=== PATIENT | female | born 1985 | race Caucasian/White ===

== ENCOUNTER 2019-06-18 12:02 | Inpatient (IN) ==
[2019-06-18] MEDS ORDERED: Ondansetron 4 MG/2 ML VIAL IVP PRN (12:30)
[2019-06-18] MEDS ORDERED: Naloxone 0.4 MG/ML INJ IVP PRN (12:30)
[2019-06-18] MEDS ORDERED: Metoclopramide 10 MG/2 ML VIAL IVP PRN (12:30)
[2019-06-18] MEDS ORDERED: Famotidine 20 MG/2 ML VIAL IVP PRN (12:30)
[2019-06-18 13:18] LABS: Basophils # 0.1 K/mcL (0.0-0.2); Basophils % 0.5 %; Eosinophils # 0.1 K/mcL (0.0-0.6); Eosinophils % 0.6 %; Hematocrit 36.8 % (35.3-44.9); Hemoglobin 12.9 g/dL (11.5-15.4); Immature Granulocytes % 0.7 % (0-4); Lymphocytes # 2.1 K/mcL (0.6-4.6); Lymphocytes % 19.2 %; Mean Corpuscular HGB Conc 35.1 g/dL (31.6-35.5); Mean Corpuscular Hemoglobin 32.6 pg (28.0-33.3); Mean Corpuscular Volume 92.9 fL (83.0-100.0); Mean Platelet Volume 10.8 fL (9.4-12.4); Monocytes # 0.9 K/mcL (0.0-1.3); Monocytes % 8.1 %; Neutrophils # 7.6 K/mcL (1.6-8.9); Platelet Count 256 K/mcL (140-400); Red Blood Count 3.96 M/mcL (3.82-4.97); Segmented Neutrophils % 70.9 %; White Blood Count 10.7 K/mcL (4.3-11.1)
[2019-06-18] MEDS ORDERED: 0.9 % Sodium Chloride 250 ML ONE (13:42)
[2019-06-18] MEDS ORDERED: 0.9 % Sodium Chloride 250 ML IVC ONE (13:43)
[2019-06-18] MEDS: Ringers Solution, Lactated 1,000 ML IVC SCH ×2 (13:58→21:09)
[2019-06-18] MEDS ORDERED: Bupivacaine-MPF 0.25% 10 ML VIAL EP ONE (14:15)
[2019-06-18] MEDS ORDERED: Epidural Premix (fent/bupiv) 110 ML EP SCH (14:15)
[2019-06-18] MEDS ORDERED: *HR* FentaNYL (PF) 100 MCG/2 ML VIAL EP ONE (14:15)
[2019-06-18] MEDS ORDERED: EPHEDrine 50 MG/ML VIAL IVP PRN (14:15)
[2019-06-18 14:17] LABS: Amphetamine Screen,Urine Negative ng/mL (Cutoff=1000); Barbiturate Screen,Urine Negative ng/mL (Cutoff=200); Benzodiazepines Screen,Urine Negative ng/mL (Cutoff=200); Cannabinoid Screen,Urine Negative ng/mL (Cutoff = 50); Cocaine Screen,Urine Negative ng/mL (Cutoff= 300); Opiate Screen,Urine Negative ng/mL (Cutoff=300); Phencyclidine Screen,Urine Negative ng/mL (Cutoff=25)
[2019-06-18] MEDS ORDERED: Bupivacaine-MPF 0.25% 10 ML VIAL ONE (14:17)
[2019-06-18] MEDS ORDERED: *HR* FentaNYL (PF) 100 MCG/2 ML VIAL ONE (14:17)
[2019-06-18] MEDS: Oxytocin 20 units/ LR 1000 mL 20 UNIT/1,000 ML BAG IVC SCH (14:34)
[2019-06-18 15:00] LABS: Alanine Aminotransferase 17 Units/L (7-52); Aspartate Amino Transferase 16 Units/L (13-39); BUN/Creatinine Ratio 17 (6-26); Blood Urea Nitrogen 11 mg/dL (6-20); Lactate Dehydrogenase 223 Units/L (140-271); eGFR For African Americans > 60 (> 60); eGFR For Non-African Americans > 60 (> 60)
[2019-06-18 15:06] LABS: Protein/Creatinine Ratio,Urine 0.4 mg/mg (0.00-0.20)
[2019-06-18] MEDS ORDERED: Calcium Gluconate 1,000 MG/10 ML VIAL IVP PRN (20:16)
[2019-06-18] MEDS ORDERED: Magnesium Sulf 20gm/LR 500mL 20 GM/500 ML IV.SOLN IVC SCH (20:30)
[2019-06-18 20:57] LABS: Basophils # 0.1 K/mcL (0.0-0.2); Basophils % 0.4 %; Eosinophils % 0.2 %; Hematocrit 35.7 % (35.3-44.9); Hemoglobin 12.2 g/dL (11.5-15.4); Immature Granulocytes % 0.4 % (0-4); Lymphocytes # 1.6 K/mcL (0.6-4.6); Lymphocytes % 11.3 %; Mean Corpuscular HGB Conc 34.2 g/dL (31.6-35.5); Mean Corpuscular Hemoglobin 32.5 pg (28.0-33.3); Mean Corpuscular Volume 95.2 fL (83.0-100.0); Mean Platelet Volume 10.6 fL (9.4-12.4); Monocytes % 7.1 %; Neutrophils # 11.3 K/mcL (1.6-8.9); Platelet Count 243 K/mcL (140-400); Red Blood Count 3.75 M/mcL (3.82-4.97); Red Cell Distribution Width 12.1 % (11.5-14.5); Segmented Neutrophils % 80.6 %
[2019-06-18 21:12] LABS: Alanine Aminotransferase 16 Units/L (7-52); Aspartate Amino Transferase 15 Units/L (13-39); BUN/Creatinine Ratio 15 (6-26); Blood Urea Nitrogen 9 mg/dL (6-20); Lactate Dehydrogenase 154 Units/L (140-271); Uric Acid 5.1 mg/dL (2.3-7.6); eGFR For African Americans > 60 (> 60); eGFR For Non-African Americans > 60 (> 60)
[2019-06-19] MEDS: Oxytocin 20 units/ LR 1000 mL 20 UNIT/1,000 ML BAG IVC SCH (00:02)
[2019-06-19] MEDS: Ringers Solution, Lactated 1,000 ML IVC SCH (00:04)
[2019-06-19] MEDS ORDERED: Lidocaine/EPI 1:200k 2% PF 20 ML VIAL ONE (01:09)
[2019-06-19] MEDS ORDERED: *HR* FentaNYL (PF) 100 MCG/2 ML VIAL ONE (01:09)
[2019-06-19] MEDS ORDERED: *HR* Morphine Sulfate/PF 10 MG/10 ML AMPUL ONE (01:10)
[2019-06-19] MEDS ORDERED: *HR* Oxytocin 10 UNIT/ML VIAL IM ONE (01:11)
[2019-06-19] MEDS ORDERED: Clindamycin 900 MG/50 ML 900 MG/50 ML IV.SOLN IVPB ONE (01:58)
[2019-06-19] MEDS ORDERED: Metoclopramide 10 MG/2 ML VIAL IVP ONE (01:58)
[2019-06-19] MEDS ORDERED: Famotidine 20 MG/2 ML VIAL IVP ONE (01:58)
[2019-06-19] MEDS ORDERED: Gentamicin 320 MG in 0.9 % Sodium Chloride 100 ML IVPB ONE (01:58)
[2019-06-19] MEDS ORDERED: *HR* Phenylephrine 10 MG/ML VIAL ONE (02:10)
[2019-06-19] MEDS ORDERED: Ondansetron 4 MG/2 ML VIAL IVP ONE (03:33)
[2019-06-19] MEDS ORDERED: *HR* Promethazine 25 MG/ML VIAL IVP PRN ×2 (03:33→08:17)
[2019-06-19] MEDS ORDERED: Acetaminophen IV 1,000 MG/100 ML INFUS..BTL IVPB ONE (03:33)
[2019-06-19] MEDS ORDERED: Naloxone 0.4 MG/ML INJ IVP PRN (03:33)
[2019-06-19] MEDS ORDERED: Metoclopramide 10 MG/2 ML VIAL IVP PRN (05:54)
[2019-06-19] MEDS ORDERED: Calcium Gluconate 1,000 MG/10 ML VIAL IVP PRN (05:54)
[2019-06-19] MEDS ORDERED: Magnesium Sulf 20gm/LR 500mL 20 GM/500 ML IV.SOLN IVC SCH (05:54)
[2019-06-19] MEDS ORDERED: Sennosides 8.6 MG TABLET PO PRN (05:54)
[2019-06-19] MEDS ORDERED: Oxytocin 20 units/ LR 1000 mL 20 UNIT/1,000 ML BAG IVC SCH (05:54)
[2019-06-19] MEDS ORDERED: Simethicone 80 MG TAB.CHEW PO PRN (05:54)
[2019-06-19] MEDS ORDERED: Rho Immune Globulin 1,500 UNIT SYRINGE IM ONE (05:54)
[2019-06-19] MEDS ORDERED: *HR* OxyCODONE/APAP 5/325 TABLET PO PRN (05:54)
[2019-06-19] MEDS ORDERED: Ondansetron 4 MG/2 ML VIAL IVP PRN (05:54)
[2019-06-19] MEDS: Prenatal Vit/FA 1 EACH TABLET PO SCH (09:48)
[2019-06-19] MEDS ORDERED: Ringers Solution, Lactated 1,000 ML ONE (20:10)
[2019-06-19] MEDS: Ibuprofen 600 MG TABLET PO PRN (20:13)
[2019-06-20 07:29] LABS: Alanine Aminotransferase 13 Units/L (7-52); Aspartate Amino Transferase 14 Units/L (13-39); BUN/Creatinine Ratio 11 (6-26); Blood Urea Nitrogen 8 mg/dL (6-20); Lactate Dehydrogenase 200 Units/L (140-271); Uric Acid 5.4 mg/dL (2.3-7.6); eGFR For African Americans > 60 (> 60); eGFR For Non-African Americans > 60 (> 60)
[2019-06-20] MEDS: Ibuprofen 600 MG TABLET PO PRN ×2 (07:55→19:53)
[2019-06-20] MEDS: Prenatal Vit/FA 1 EACH TABLET PO SCH (07:55)
[2019-06-21] MEDS: Prenatal Vit/FA 1 EACH TABLET PO SCH (08:10)
[2019-06-21 10:38] LABS: Basophils # 0.1 K/mcL (0.0-0.2); Basophils % 0.5 %; Eosinophils # 0.1 K/mcL (0.0-0.6); Hematocrit 28.6 % (35.3-44.9); Immature Granulocytes % 0.5 % (0-4); Lymphocytes # 1.8 K/mcL (0.6-4.6); Mean Corpuscular HGB Conc 32.5 g/dL (31.6-35.5); Mean Corpuscular Hemoglobin 32.3 pg (28.0-33.3); Mean Corpuscular Volume 99.3 fL (83.0-100.0); Mean Platelet Volume 9.8 fL (9.4-12.4); Monocytes # 0.8 K/mcL (0.0-1.3); Monocytes % 6.7 %; Neutrophils # 8.7 K/mcL (1.6-8.9); Platelet Count 254 K/mcL (140-400); Red Blood Count 2.88 M/mcL (3.82-4.97); Red Cell Distribution Width 12.4 % (11.5-14.5); Segmented Neutrophils % 75.3 %; White Blood Count 11.5 K/mcL (4.3-11.1)
[2019-06-21 10:39] LABS: Hemoglobin 9.3 g/dL (11.5-15.4)
[2019-06-21 11:30] VITALS: BP 142/84
== END 2019-06-21 15:36 | disposition home or self-care (01) | DRG 787 ==
LOC: 1NENULAB 12:02 → 1NENUOBS 06-19 05:55
PROVIDERS: ADMIT Obstetrics & Gynecology; ATTEND Obstetrics & Gynecology

== ENCOUNTER 2022-02-10 08:37 | Inpatient (IN) ==
[2022-02-10] MEDS ORDERED: Metoclopramide 10 MG/2 ML VIAL IVP PRN (09:32)
[2022-02-10] MEDS ORDERED: Ondansetron 4 MG/2 ML VIAL IVP PRN (09:32)
[2022-02-10] MEDS ORDERED: Famotidine 20 MG/2 ML VIAL IVP PRN (09:32)
[2022-02-10] MEDS ORDERED: Naloxone 0.4 MG/ML INJ IVP PRN (09:32)
[2022-02-10 10:13] LABS: Creatinine,Urine 34 mg/dL; Protein/Creatinine Ratio,Urine 0.41 mg/mg (0.00-0.20)
[2022-02-10 10:18] LABS: Basophils # 0.1 K/mcL (0.0-0.2); Basophils % 0.5 %; Eosinophils # 0.1 K/mcL (0.0-0.6); Hematocrit 36.7 % (35.3-44.9); Hemoglobin 12.5 g/dL (11.5-15.4); Immature Granulocytes % 1.1 % (0-4); Lymphocytes # 1.6 K/mcL (0.6-4.6); Lymphocytes % 14.4 %; Mean Corpuscular HGB Conc 34.1 g/dL (31.6-35.5); Mean Corpuscular Hemoglobin 31.8 pg (28.0-33.3); Mean Corpuscular Volume 93.4 fL (83.0-100.0); Mean Platelet Volume 10.3 fL (9.4-12.4); Neutrophils # 8.2 K/mcL (1.6-8.9); Platelet Count 236 K/mcL (140-400); Red Blood Count 3.93 M/mcL (3.82-4.97); Red Cell Distribution Width 12.7 % (11.5-14.5)
[2022-02-10 10:23] LABS: Alanine Aminotransferase 28 Units/L (7-52); Aspartate Amino Transferase 19 Units/L (13-39); BUN/Creatinine Ratio 11 (6-26); Blood Urea Nitrogen 4 mg/dL (6-20); Lactate Dehydrogenase 159 Units/L (140-271)
[2022-02-10 10:32] LABS: Amphetamine Screen,Urine Negative ng/mL (Cutoff=1000); Barbiturate Screen,Urine Negative ng/mL (Cutoff=200); Benzodiazepines Screen,Urine Negative ng/mL (Cutoff=300); Cannabinoid Screen,Urine Negative ng/mL (Cutoff = 50); Cocaine Screen,Urine Negative ng/mL (Cutoff= 300); Opiate Screen,Urine Negative ng/mL (Cutoff=300); Phencyclidine Screen,Urine Negative ng/mL (Cutoff=25)
[2022-02-10] MEDS ORDERED: Ropivacaine/PF 0.2% 20 ML VIAL EP ONE (10:35)
[2022-02-10] MEDS ORDERED: EPHEDrine 50 MG/ML VIAL IVP PRN (10:35)
[2022-02-10] MEDS ORDERED: *HR* FentaNYL (PF) 100 MCG/2 ML VIAL EP ONE (10:35)
[2022-02-10] MEDS: Ringers Solution, Lactated 1,000 ML IVC SCH ×3 (12:02→23:01)
[2022-02-10] MEDS: Oxytocin 30 UNIT/503 ML BAG IVC SCH (12:20)
[2022-02-10] MEDS ORDERED: *HR* FentaNYL (PF) 100 MCG/2 ML VIAL ONE (22:19)
[2022-02-10] MEDS ORDERED: Ropivacaine/PF 0.2% 20 ML VIAL ONE (22:19)
[2022-02-11] MEDS: Ringers Solution, Lactated 1,000 ML IVC SCH ×2 (07:04→17:54)
[2022-02-11] MEDS ORDERED: *HR* FentaNYL (PF) 100 MCG/2 ML VIAL ONE (07:53)
[2022-02-11] MEDS ORDERED: Lidocaine/EPI 1:200k 2% PF 20 ML VIAL ONE (07:53)
[2022-02-11] MEDS ORDERED: Sodium Bicarbonate 50 MEQ/50 ML VIAL ONE (07:53)
[2022-02-11] MEDS ORDERED: Ondansetron 4 MG/2 ML VIAL ONE (07:56)
[2022-02-11] MEDS ORDERED: EPHEDrine 50 MG/ML VIAL ONE (07:57)
[2022-02-11] MEDS ORDERED: CeFAZolin 2,000 MG/120 ML BAG IVPB ONE (08:02)
[2022-02-11] MEDS ORDERED: *HR* Morphine Sulfate/PF 10 MG/10 ML AMPUL ONE (08:04)
[2022-02-11] MEDS ORDERED: Ringers Solution, Lactated 1,000 ML ONE ×2 (08:11→17:46)
[2022-02-11] MEDS ORDERED: *HR* Midazolam HCl 2 MG/2 ML VIAL ONE (08:19)
[2022-02-11] MEDS ORDERED: *HR* Oxytocin 10 UNIT/ML VIAL ONE ×2 (08:30→10:52)
[2022-02-11] MEDS: Oxytocin 30 UNIT/503 ML BAG IVC SCH ×2 (08:45→14:43)
[2022-02-11] MEDS ORDERED: Prenatal Vit/FA 1 EACH TABLET PO SCH (09:00)
[2022-02-11] MEDS: Epidural Premix (fent/bupiv) 110 ML EP SCH ×2 (10:17→10:18)
[2022-02-11] MEDS ORDERED: Acetaminophen IV 1,000 MG/100 ML BAG IVPB ONE (10:18)
[2022-02-11] MEDS ORDERED: Simethicone 80 MG TAB.CHEW PO PRN (10:49)
[2022-02-11] MEDS ORDERED: Metoclopramide 10 MG/2 ML VIAL IVP PRN (10:49)
[2022-02-11] MEDS ORDERED: *HR* OxyCODONE Immed Rel 5 MG TABLET PO PRN (10:49)
[2022-02-11] MEDS ORDERED: Ketorolac 30 MG/ML VIAL ONE (10:52)
[2022-02-11] MEDS: Ondansetron 4 MG/2 ML VIAL IVP PRN ×2 (11:26→17:47)
[2022-02-11] MEDS ORDERED: ceFAZolin 2,000 MG in Water for inj. (sterile) 10 ML IVP SCH (16:00)
[2022-02-11] MEDS: Acetaminophen 325 MG TABLET PO SCH (17:52)
[2022-02-11] MEDS: Ibuprofen 600 MG TABLET PO SCH (17:53)
[2022-02-11] MEDS: metroNIDAZOLE 500 MG TABLET PO SCH (17:53)
[2022-02-11] MEDS ORDERED: *HR* Labetalol 20 MG/4 ML SYRINGE IVP ONE (18:46)
[2022-02-11] MEDS: CeFAZolin 2,000 MG/120 ML BAG IVPB SCH (20:04)
[2022-02-12] MEDS: Acetaminophen 325 MG TABLET PO SCH ×6 (00:09→21:46)
[2022-02-12] MEDS: Ibuprofen 600 MG TABLET PO SCH ×5 (00:09→21:46)
[2022-02-12] MEDS: metroNIDAZOLE 500 MG TABLET PO SCH ×5 (04:22→21:46)
[2022-02-12] MEDS ORDERED: Ringers Solution, Lactated 500 ML IVC ONE (04:31)
[2022-02-12] MEDS: CeFAZolin 2,000 MG/120 ML BAG IVPB SCH ×3 (04:32→13:08)
[2022-02-12 05:10] LABS: Basophils # 0.1 K/mcL (0.0-0.2); Basophils % 0.5 %; Eosinophils # 0.1 K/mcL (0.0-0.6); Eosinophils % 0.5 %; Hematocrit 31.1 % (35.3-44.9); Immature Granulocytes % 0.5 % (0-4); Lymphocytes # 2.3 K/mcL (0.6-4.6); Lymphocytes % 17.3 %; Mean Corpuscular HGB Conc 33.8 g/dL (31.6-35.5); Mean Corpuscular Hemoglobin 31.8 pg (28.0-33.3); Mean Corpuscular Volume 94.2 fL (83.0-100.0); Mean Platelet Volume 10.1 fL (9.4-12.4); Monocytes # 1.4 K/mcL (0.0-1.3); Monocytes % 10.5 %; Neutrophils # 9.2 K/mcL (1.6-8.9); Platelet Count 232 K/mcL (140-400); Red Cell Distribution Width 12.8 % (11.5-14.5); Segmented Neutrophils % 70.7 %
[2022-02-12 05:13] LABS: Hemoglobin 10.5 g/dL (11.5-15.4)
[2022-02-12] MEDS: Prenatal Vit/FA 1 EACH TABLET PO SCH (07:51)
[2022-02-13] MEDS: Acetaminophen 325 MG TABLET PO SCH (04:49)
[2022-02-13] MEDS: Ibuprofen 600 MG TABLET PO SCH (04:49)
[2022-02-13] MEDS: metroNIDAZOLE 500 MG TABLET PO SCH (08:01)
[2022-02-13] MEDS: Prenatal Vit/FA 1 EACH TABLET PO SCH (08:01)
[2022-02-13 08:18] VITALS: BP 145/95; PULSE 102; TEMP 98.2; O2SAT 98
== END 2022-02-13 11:30 | disposition home or self-care (01) | DRG 788 ==
LOC: 1NENULAB 08:37 → 1NENUOBS 02-11 11:49
PROVIDERS: ADMIT Student in an Organized Health Care Education/Training Program; ATTEND Student in an Organized Health Care Education/Training Program